=== PATIENT | male | born 1965 | race Caucasian/White ===

== ENCOUNTER 2024-08-15 09:22 | Outpatient (CLI) | payer OTHER, SELFPAY ==
--- NOTE | ~2024-08-15 | NM_ITS ---
EXAMINATION: NM parathyroid imaging w spect DATE: 08/15/2024 12:41 INDICATION: Parathyroid adenoma TECHNIQUE: 19.6 mCi Tc99m sestamibi (Cardiolite) was administered by intravenous route. Anterior imag es of the neck were obtained at 10 minutes and 2 hours. Additional 2 hour delayed SPECT imaging was o btained and reconstructed in sagittal, axial and coronal planes. COMPARISON: None. FINDINGS/IMPRESSION: There is no focus of persistent activity in the area of the thyroid or mediastinum to suggest parathy roid adenoma. Reviewed, dictated and finalized at location A.
--- OUTSIDE RECORDS SUMMARY | 2024-08-15 10:10 | XMS_ITS | Clinical Summary ---
Author Organization [facility] Address [address] [place] [address] Phone Care Team Providers Care Film Sound Engineer Name Role Phone Unavailable Primary Care Provider Unavailabl e Social History Tobacco Use Types Packs/Day Years Used Date Smoking Tobacco: Never Assessed Sex and Gender Information Value Date Recorded Sex Assigned at Not on file Legal Sex Male 12:57 PM CDT Gender Identity Not on file Sexual Orientation Not on file Plan of Treatment Health Maintenance Due Date Last Done Comments DTAP/TDAP/TD VACCINES (1 - Tdap) 02/19/1984 HEPATITIS B VACCINES (1 of 3 - 19+ 3-dose series) 01/29 COLORECTAL SCREENING 2010 Colorectal Cancer Screening 2010 FIT-DNA Q 3 years 2010 FIT/FOBT Q 1 year 2010 Flex Sig/CT Colonography Q 5 years 2010 ZOSTER VACCINE (1 of 2) 2015 INFLUENZA VACCINE (#1) 2023
[2024-08-15 11:17] LABS: Alanine Aminotransferase 25 U/L (6-50); Albumin Level 4.3 g/dL (3.5-5.1); Alkaline Phosphatase 71 U/L (38-126); Anion Gap 11 mmol/L (4-12); Aspartate Amino Transferase 28 U/L (17-59); Blood Urea Nitrogen 17 mg/dL (9-20); Calcium 9.3 mg/dL (8.4-10.2); Carbon Dioxide 26 mmol/L (22-30); Chloride 102 mmol/L (98-107); Estimated Glomerular Filt Rate > 60; Glucose 113 mg/dL (65-110); Magnesium 2.1 mg/dL (1.6-2.3); Phosphorus 3.4 mg/dL (2.5-4.5); Sodium 139 mmol/L (137-145)
[2024-08-15 11:42] LABS: Parathyroid Intact 52.4 pg/mL (14.5-75.2)
[2024-08-15 11:51] LABS: Vitamin D 25 Hydroxy < 12.8 ng/mL
[2024-08-16 14:24] LABS: Ionized Calcium. 5.2 mg/dL (4.7-5.5)
== END 2024-08-15 09:23 | disposition home or self-care (01) ==
PROVIDERS: PCP Internal Medicine; Visit Provider Physician Assistant
DX: D35.1 Benign neoplasm of parathyroid gland (principal); E06.9 Thyroiditis, unspecified; E11.9 Type 2 diabetes mellitus without complications; E05.90 Thyrotoxicosis, unspecified without thyrotoxic crisis or storm; E04.1 Nontoxic single thyroid nodule
CPT/HCPCS: 36415; 78071; 80053; 82306; 82330; 83735; 83970; 84100; A9500

== ENCOUNTER 2024-10-04 12:39 | Outpatient (CLI) | payer OTHER, SELFPAY ==
--- NOTE | ~2024-10-04 | US_ITS ---
EXAMINATION: US FNA w image guidance, US FNA additional DATE: 10/04/2024 14:20 INDICATION: Thyroid nodule. Previous suspicion for parathyroid adenoma. TECHNIQUE: A time-out was performed to verify the patient's name, date of , and procedure to be performed . The procedure and its benefits and risks were discussed with the patient. Risks specifically discus sed included bleeding and infection. The patient understood the risks and agreed to proceed. The neck was prepped and draped in the usual sterile manner. Attention was first turned to the elongated hypo echoic nodule at the medial aspect of the inferior right thyroid identified on the prior ultrasound. 5 mL 1% lidocaine was used for local anesthesia. 5 passes were made with a 25G needle into the lesio n. Appropriate needle location was documented with continuous sonographic guidance. Attention was th en turned to a second nodule more laterally at the inferior right thyroid. 7 passes were made with a 20 5G needle into the lesion with appropriate needle location documented with continuous sonographic guidance. A sterile bandage was applied. There were no immediate complications. FINDINGS: Grayscale ultrasound images demonstrate biopsy needles advanced into the previously noted 1.8 x 0.6 c m hypoechoic nodule at the medial aspect of the inferior right thyroid lobe the lesion appeared as a less well-defined hypoechoic region and less discretely nodular on the current study. This region and given the patient's concern for parathyroid adenoma was elected to biopsy an adjacent 1.1 cm solid s lightly hypoechoic nodule more laterally at the inferior right thyroid. IMPRESSION: 1. Successful ultrasound-guided fine needle aspiration of the previous noted 1.8 cm hypoechoic nodul es at the medial aspect of the inferior right thyroid which appears more geographic and less discrete ly nodular on the current study. 2. Successful ultrasound-guided fine-needle aspiration of a second adjacent 1.1 cm solid slightly hyp oechoic nodule positioned more laterally at the inferior right thyroid. Reviewed, dictated and finalized at location A. IMPRESSION: 1. Successful ultrasound-guided fine needle aspiration of the previous noted 1 .8 cm hypoechoic nodules at the medial aspect of the inferior right thyroid whi ch appears more geographic and less discretely nodular on the current study. 2. Successful ultrasound-guided fine-needle aspiration of a second adjacent 1.1 cm solid slightly hypoechoic nodule positioned more laterally at the inferior right thyroid.
--- OUTSIDE RECORDS SUMMARY | 2024-10-04 12:46 | XMS_ITS | Clinical Summary ---
Author Organization [facility] Address [address] [place] [address] Care Team Providers Care Land Examiner Name Role Phone Abelino Nunez MD, Cuauhtemoc Primary Care Provider [phone] Allergies No known active allergies Medications amLODIPine (NORVASC) 5 MG tablet Take 1 tablet (5 mg total) by mouth daily. Active escitalopram (LEXAPRO) 20 MG tablet Take 1 tablet (20 mg total) by mouth daily. Active hydroCHLOROthiaz real (HYDRODIURIL) 25 MG tablet Take 1 tablet (25 mg total) by mouth every morning. Active lisinopril (PRINIVIL) 40 MG tablet Take 1 tablet (40 mg total) by mouth daily. Active methIMAzole (TAPAZOLE) 10 MG tablet Take 1 tablet (10 mg total) by mouth daily. Active metoprolol tartrate (LOPRESSOR) 100 MG tablet Take 1 tablet (100 mg total) by mouth 2 (two) times daily. Active tamsulosin (FLOMAX) 0.4 MG Cap Take 1 capsule (0.4 mg total) by mouth nightly. Active metFORMIN (GLUCOPHAGE) 500 MG tablet Take 1 tablet (500 mg total) by mouth 2 (two) times daily with meals. Active aspirin EC (ECOTRIN) 81 MG tablet Take 1 tablet (81 mg total) by mouth daily. Active nitroglycerin (NITROSTAT) 0.[address] 1 tablet (0.4 mg total) under the tongue every 5 (five) minutes as needed for Chest Pain. Active atorvastatin (LIPITOR) 10 MG tablet Take 1 tablet (10 mg total) by mouth nightly at bedtime. Active ALBUTEROL IN Active semaglutide (OZEMPIC) 2 MG/3ML injection (PEN)Indications :Diabetes Mellitus Inject 0.5 mg into the skin every 7 days. Indications: Diabetes Active isosorbide mononitrate ER (IMDUR) 30 MG 24 hr tablet Take 1 tablet (30 mg total) by mouth daily. Active omeprazole (PRILOSEC) 20 MG capsule Take 1 capsule (20 mg total) by mouth daily. Active clopidogrel (PLAVIX) 75 MG tablet Take 1 tablet (75 mg total) by mouth daily. 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 Gender Identity Not on file Sexual Orientation Not on file Last Filed Vital Signs Vital Sign Reading Time Taken Comments Blood Pressure 132/88 06/06/2024 11:55 AM CDT Pulse 88 06/06/2024 11:55 AM CDT Temperature 36.2 C (97.2 F) 11/18/2023 7:34 AM CDT Respiratory Rate 17 05/03/2024 11:57 AM TALENT ACQUISITION SOURCER Oxygen Saturation 93% 05/03/2024 11:57 AM TALENT ACQUISITION SOURCER Inhaled Oxygen Concentration - - Weight 118.8 kg (262 lb) 06/06/2024 11:55 AM CDT Height 177.8 cm (5' 10) 06/06/2024 11:55 AM CDT Body Mass Index 37.59 06/06/2024 11:55 AM CDT Plan of Treatment Upcoming Encounters Date Type Department Care Team (Late st Contact Info) Description 11/08/2024 9:45 AM CDT Office Visit [facility] [address] [place] [phone] Deny Watts MD [facility] [address] [place] [address] 12/05/2024 9:15 AM CDT Office Visit [facility] [place] [address] [place] [phone] Pio Hernandez MD [facility]. [address] [phone] Health Maintenance Due Date Last Done Comments Colorectal Cancer Screening Colonoscopy (10 Years) 1965 Annual Physical 02/19/1968 Hepatitis C 1983 DTaP, Tdap and Td Vaccines ( 1 - Tdap) 02/19/1984 Pneumococcal Vaccine: 50+ Ye ars (1 of 2 - PCV) 02/19/1984 Zoster Vaccines (1 of 2) 2015 COVID-19 Vaccine (1 - 2023-2 5 season) 2023 ASCVD LDL 01/19/2024 01/18/2023 PHQ-2 (Physician Theresa) 02/29/2024 Meningococcal B Vaccine Aged Out No l onger eligible based on patient's age to complete this topic Meningococcal Vaccine Aged Out No jimenez hardeep eligible based on patient's age to complete this topic RSV Immunizations Under 20 Months Aged Out No longer eligible based on patient's age to complete this topic Procedures Procedure Name Priority Date/Time Associated Diagnosis Comments LIPID PANEL Routine 01/18/2023 from Last 3 Months or Most Recently Relevant to Health Maintenance Results * LIPID PANEL (01/18/2023) CHOLESTEROL 221 TRIGLYCERIDES 144 HDL 44 LDL (CALCULATED) 148 us Default History Genericprovider LABORATORY Final Result from Last 3 Months or Most Recently Relevant to Health Maintenance Insurance [employer] Care Teams Land Examiner Relationship Specialty Start Date End Date Cuauhtemoc Roca MD [facility] [address] [place] [address] PCP - General INTERNAL MEDICINE 03/09/23
--- OUTSIDE RECORDS SUMMARY | 2024-10-04 12:46 | XMS_ITS | Clinical Summary ---
Author Organization [facility] Address [address] [place] [address] Phone Care Team Providers Care Bill Checker Name Role Phone Unavailable Primary Care Provider [...] (1 of 2) 2015 INFLUENZA VACCINE (#1) 2024
--- OUTSIDE RECORDS SUMMARY | 2024-10-04 12:46 | XMS_ITS | Encounter Summary ---
Author Organization [facility] Address [address] [place] [address] Care Team Providers Care Compensation And Hris Analyst Name Role Phone Abelino Nunez MD, Cu[place]htemoc Primary Care Provider [phone] Encounter Details Date Type Department Care Team (Late st Contact Info) Description 05/26/2023 Abstract [facility] [address] [place] [address] Shravan Morfin MA Social History Tobacco Use Types Packs/Day Years Used Date Smoking Tobacco: Never Assessed Sex and Gender Information Value Date Recorded Sex Assigned at Male 06/14/2024 9:58 AM CDT Legal Sex Male 11: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 [facility] [address] [place] [address] 12/05/2024 9:15 AM CDT Office Visit [facility] [address] [phone] Pio Hernandez MD [facility]. [facility] [address] [place] [address] documented as of this encounter Procedures Procedure Name Priority Date/Time Associated Diagnosis Comments COMPREHENSIVE METABOLIC PANEL Routine 04/10/2024 THYROXINE, FREE (FT4) Routine 04/10/2024 THYROID STIM HORMONE TSH Routine 04/10/2024 HEMOGLOBIN, GLYCOSYLATED Routine 01/18/2023 COMPREHENSIVE METABOLIC PANEL Routine 01/18/2023 LIPID PANEL Routine 01/18/2023 CBC, MANUAL DIFF Routine 01/18/2023 THYROXINE, FREE (FT4) Routine 01/18/2023 THYROID STIM HORMONE TSH Routine 01/18/2023 documented in this encounter Results * COMPREHENSIVE METABOLIC PANEL (04/10/2024) SODIUM S/P/B 138 GLUCOSE 109 mg/dL AST 22 BUN 16 CREATININE S/P/B 0.78 0.7 - 1.3 CALCIUM S/P/B 9.5 POTASSIUM S/P/B 4.3 CHLORIDE S/P/B 99 ALT 21 GFR ESTIMATE >60 us Default History Genericprovider LABORATORY Final Result * THYROXINE, FREE (FT4) (04/10/2024) FREE T4 1.32 us Default History Genericprovider LABORATORY Final Result * THYROID STIM HORMONE TSH (04/10/2024) TSH 1.73 us Default History Genericprovider LABORATORY Final Result * COMPREHENSIVE METABOLIC PANEL (01/18/2023) SODIUM S/P/B 138 GLUCOSE 106 mg/dL AST 22 BUN 15 CREATININE S/P/B 0.73 0.7 - 1.3 CALCIUM S/P/B 9.9 POTASSIUM S/P/B 4.6 CHLORIDE S/P/B 98 ALT 29 GFR ESTIMATE >60 us Default History Genericprovider LABORATORY Final Result * LIPID PANEL (01/18/2023) Pathologist [facility] CHOLESTEROL 221 TRIGLYCERIDES 144 HDL 44 LDL (CALCULATED) 148 us Default History Genericprovider LABORATORY Final Result * CBC, MANUAL DIFF (01/18/2023) [facility] WBC 7.9 HGB 15.8 HCT 46.5 PLT 270 us Default History Genericprovider LABORATORY Final Result * THYROXINE, FREE (FT4) (01/18/2023) [facility] FREE T4 1.77 us Default History Genericprovider LABORATORY Final Result * HEMOGLOBIN, GLYCOSYLATED (01/18/2023) [facility] HGB A1C 6.4 % us Default History Genericprovider LABORATORY Final Result * THYROID STIM HORMONE, TSH (01/18/2023) [facility] TSH <0.01 us Default History Genericprovider LABORATORY Final Result documented in this encounter Visit Diagnoses Not on filedocumented in this encounter Care Teams Compensation And Hris Analyst Relationship Specialty Start Date End Date Cuauhtemoc Roca MD [facility] [address] [place] [address] PCP - General INTERNAL MEDICINE 03/09/23 documented as of this encounter
--- NOTE | 2024-10-04 14:15 | CY_PTH ---
PATIENT: Geraldo Mcginnis LOC: ANHIMG U#:[id number] AGE/SX: 59/M ROOM: RE10/04/[address]: Bela Lewis : 1965 BED: DIS: 10/04/2024 SPEC #: [id number] RECD: 10/04/24 14:25 STATUS: LUIS ANGEL RE #: [id number] EDIS: 10/04/24 14:[address]: Joshua,Bela Swann DEPT: [facility] Cytology RECD BY: Samantha Barone ENTERED: 10/04/24 14:25 SP TYPE: Cytology OTHR DR: [facility] Tissues: A - FNA Thyroid B - FNA Thyroid Procedures: Hematoxylin and Eosin Stain Cell Block Fine Needle Aspiration Evaluation Fine Needle Aspiration Pathologist
== END 2024-10-04 12:40 | disposition home or self-care (01) ==
LOC: ANHIMG 12:41
PROVIDERS: Visit Provider Physician Assistant
DX: N40.1 Benign prostatic hyperplasia with lower urinary tract symptoms (principal); I10 Essential (primary) hypertension; F41.9 Anxiety disorder, unspecified; K06.8 Other specified disorders of gingiva and edentulous alveolar ridge; R07.9 Chest pain, unspecified; R94.8 Abnormal results of function studies of other organs and systems; M79.2 Neuralgia and neuritis, unspecified; R06.02 Shortness of breath; I73.9 Peripheral vascular disease, unspecified; H25.9 Unspecified age-related cataract; J44.9 Chronic obstructive pulmonary disease, unspecified; Z95.5 Presence of coronary angioplasty implant and graft; K21.9 Gastro-esophageal reflux disease without esophagitis
CPT/HCPCS: 10005; 10006; 88172; 88173; 88305